=== PATIENT | female | born 1985 | race Caucasian/White ===

== ENCOUNTER 2023-01-19 19:22 | Emergency (ER) | payer BC ==
[~2023-01-19] VITALS: Ht 162.6 cm; Wt 106.1 kg
[2023-01-19 19:30] VITALS: BP 129/80
== END 2023-01-19 21:09 | disposition home or self-care (01) ==
LOC: ER 19:22
DX: T81.33XA Disruption of traumatic injury wound repair, initial encounter (principal); Y83.8 Other surgical procedures as the cause of abnormal reaction of the patient, or of later complication, without mention of misadventure at the time of the procedure
CPT/HCPCS: 99282